=== PATIENT | female | born 1975 | race Hispanic/Latino ===

== ENCOUNTER 2016-02-26 16:27 | Emergency (ER) | payer OTHER ==
[~2016-02-26] VITALS: Ht 167.6 cm; Wt 79.1 kg
[2016-02-26 16:39] VITALS: BP 103/64; PULSE 56; RESP 15; O2SAT 99
--- NOTE | 2016-02-26 18:16 | ED.REPORT ---
HPI-URI / Cough / Cold Date of Service Feb 26, 2016 ED Provider: Brody Dwyer DO A healthy 40 year old female presents to the ED for a productive cough with yellow sputum onset two months ago. She also reports sneezing, heartburn, and mild pelvic pain. She denies generalized myalgias, fever, vomiting, dyspnea, hemoptysis, and diarrhea. Her children have been ill recently. The patient has been unable to make it to [facility] or Urgent Care which is why she is here today. Nursing Notes Stated Complaint: COUGH Chief Complaint: Respiratory Complaints Nursing Notes Reviewed: Yes Allergies: Coded Allergies: No Known Allergies (Verified , 02/26/16) Uncoded Allergies: NKA (Allergy, Unknown, 07/09/03) NKDA (Allergy, Unknown, 07/09/03) General Time Seen by MD: 18:03 Chief Complaint Cough, productive... (Yellow) Arrived By: Walk-in Onset Occurred: More than a week ago... (2 months) Symptom Duration: Since onset Location: : Chest Severity: Current: No pain currently (no pain rather she has frequent cough with yellow sputum.) Severity: Maximum: No pain Associated with: Reports: Abdominal pain (Suprapubic), Denies: Fever, Myalgia Pertinent Negative: Relieved by nothing Context: Immunization Status General: Unknown Recent Healthcare: No recent doctor visit Past Medical History Past Medical History Reviewed, patient denies Past Surgical History Reports: Tonsillectomy Smoking History Former Smoker (Stopped 02/24/16) Social History Other Social History: Lives with children Occupation [employer] Ambulatory Status Independent Review of Systems Constitutional: Denies: Fever Respiratory: Reports: Prod cough, yellow, Denies: Dyspnea on exertion, Hemoptysis, Pleuritic pain GI: Denies: Abdominal pain, Diarrhea, Vomiting Allergy / Immune: Reports: Sneezing Complete sys rev & neg: except as marked. Cardiovascular: Denies: Chest pain, Dyspnea on exertion, Orthopnea Female: Denies: Pelvic pain, Vaginal bleeding - abnl, Vaginal discharge Musculoskeletal: Denies: Myalgia Physical Exam Initial Vital Signs Vital Signs (First) Date Time Temp Pulse Resp B/P Pulse Ox O2 Delivery O2 Flow Rate FiO2 02/26/16 16:39 36.6 56 15 103/64 99 Room Air Initial VS: Reviewed Head / Eyes: Atraumatic, Normocephalic Neck: Non-tender, Full range of motion Cardiovascular: Regular rate & rhythm, Heart sounds normal Skin: Warm, Dry, No cyanosis Neurologic: Alert, Oriented, Nonfocal Psychiatric: Mood/affect normal, Behavior normal, Normal thought content ENT: Airway patent, Mucous membranes moist, Pharynx NL Nose: Positive: Rhinorrhea (Mild) Impetigo under right external nare, no abscess Respiratory / Chest: Breath sounds = bilat, No respiratory distress Wheezing / Retractions: Positive: Wheezing expiratory (Faint, bilaterally) Abdomen: Soft Tenderness/Guarding/Rebound: Positive: Tender suprapubic (Mild) Interpretation & Diagnostics Lab Results Interpretation Test 02/26/16 18:30 Urine Color Yellow (YELLOW) Urine Appearance Clear (CLEAR,HAZY) Urine pH 7.5 (5.0-8.0) Urine Specific [place] 1.020 (1.003-1.035) Urine Protein Negativemg/dL (NEG,TRACE) Urine Glucose (UA) Negativemg/dL (NEGATIVE) Urine Ketones Negativemg/dL (NEGATIVE) Urine Occult Blood Negative (NEGATIVE) Urine Nitrite Negative (NEGATIVE) Urine Bilirubin Negative (NEGATIVE) Urine Urobilinogen Normalmg/dL (NORMAL) Urine Leukocyte Esterase Negative (NEGATIVE) Urine RBC 0-2/hpf (0-2) Urine WBC 0-5/hpf (0-5) Urine Epithelial Cells Occasional/hpf (NONE-MOD) Urine Crystals None seen (NONE SEEN) Urine Bacteria Few/hpf (NONE-FEW) Urine Hyaline Casts None/lpf (NONE) Urine Granular Casts None seen (NONE SEEN) Urine Waxy Casts None seen (NONE SEEN) Urine Red Blood Cell Casts None seen (NONE SEEN) Urine White Blood Cell Casts None seen (NONE SEEN) Urine Mucus None seen (None Seen) Urine Trichomonas None seen (NONE SEEN) Urine Yeast None (NONE SEEN) Urinalysis Comment None Urine Culture Reflexed Not indicated X-Ray Chest Interpretation Chest Xray Interpretation: IMPRESSION: 1. No acute cardiopulmonary disease. Dictated by: Rosendo Means M.D. on 02/26/2016 at 18:52 View: AP & lat Interpretation / Wet Read by: Interpret - Radiologist Re-Eval/Medical Decision Med Decision/Clinical Course Healthy 40-year-old female presents with classic bronchitis with bronchospasm. She has had cough of yellow sputum. She has R Alvarez's. She is treated with bronchodilators and steroids. She improved dramatically. Diagnostics were reassuring. She is not . UA was negative. She did have mild urinary frequency. I felt pulmonary emboli to be very unlikely. I considered this diagnosis. She meets pulmonary emboli rule out criteria. D-dimer testing not indicated. She is low risk well score. Re-Evaluation/Progress : Time of Eval: 19:36 Patient Status: Condition improved Re-Evaluation/Progress Note: Patient is moving air better and feels as though her breathing has improved. Discussed with patient x-ray results, diagnosis, and plan for discharge. Follow-up and return to the ER instructions given. Patient agrees with plan for care and all questions were addressed. Counseled Regarding: Diagnosis, Need for follow-up, When/why to return to ED Discharge & Departure Impression: Primary Impression: Acute bronchitis Bronchitis organism: unspecified organism Qualified Code: J20.9 - Acute bronchitis, unspecified Additional Impression: Reactive airway disease Asthma severity: mild intermittent Asthma complication type: with acute exacerbation Qualified Code: J45.21 - Mild intermittent asthma with (acute) exacerbation Disposition: Home Discharge Condition All VS Reviewed: Yes Condition: Stable Patient Instructions: Acute Bronchitis (ED) Additional Instructions: Take doxycycline twice daily for 5 days. Prednisone daily for 3 days. One is an antibiotic and the other is an anti-inflammatory. Both are for your lungs. Albuterol 2 puffs every 2-3 hours as needed for the cough and wheeze. Your chest x-ray was normal. Do not smoke cigarettes. You should feel better in 24- 48 hours. If you are not improved then come back to the emergency department or be seen by your doctor. Either way set up a follow-up visit for the next 5- 7 days with your primary care. Do not hesitate to return if any problems or any worsening symptoms. Apply mupirocin ointment twice daily to the sore under your right nostril. I suspect that this is a staph or a strep infection and this ointment should help. Referrals: [facility] (PCP) Scribe Attestation Portions of this note were transcribed by Kita Villarreal. I, Dr. Dwyer, personally performed the history, physical exam, and medical decision-making; I reviewed and confirmed the accuracy of the information in the transcribed note. Signed by: Korey Palafox, 02/26/2016, 20:54 copies to: [facility] Todd P DO Feb 26, 2016 18:16 KITA VILLARREAL Feb 26, 2016 18:36
[2016-02-26] MEDS ORDERED: Albuterol-Ipratropium 3 mL Inhalation Solution NEB ONE (18:30)
[2016-02-26] MEDS ORDERED: predniSONE 20 mg Tablet PO ONE (18:30)
--- NOTE | 2016-02-26 18:53 | DRSVH ---
PROCEDURE: X-RAY CHEST, TWO VIEWS ([id number]) INDICATIONS: cough TECHNIQUE: 2 views of the chest were acquired. COMPARISON: [facility], , CHEST 2VW, 11/13/2013, 17:08. FINDINGS: Surgical changes and devices: None. Lungs and pleura: No pleural effusions or pneumothorax. Lungs are clear. Mediastinum: Mediastinal contours are normal. Heart size is normal. Bones and chest wall: No suspicious bony abnormalities. Soft tissues appear unremarkable. IMPRESSION: 1. No acute cardiopulmonary disease. Dictated by: Rosendo Means M.D. on 02/26/2016 at 18:52 Approved by: Rosendo Means M.D. on 02/26/2016 at 18:52
[2016-02-26 18:59] VITALS: PULSE 66; RESP 18; O2SAT 100
[2016-02-26] MEDS ORDERED: Albuterol HFA 60 Puff 8 Gm Inhaler INHALATION PRN (19:35)
[2016-02-26 19:50] VITALS: BP 98/63; PULSE 73; RESP 20; O2SAT 100
[2016-02-26 20:01] LABS: APPEARANCE,URINE CLEAR (CLEAR,HAZY); COLOR,URINE YELLOW (YELLOW); OCCULT BLOOD,URINE NEGATIVE (NEGATIVE); PH,URINE 7.5 (5.0-8.0); UROBILINOGEN,URINE NORMAL (NORMAL)
[2016-02-26] MEDS ORDERED: _Albuterol-HFA 60 Puff Inhaler INHALATION PRN (21:15)
== END 2016-02-26 20:50 | disposition home or self-care (01) ==
LOC: SED 16:27
DX: J20.9 Acute bronchitis, unspecified (principal); J45.21 Mild intermittent asthma with (acute) exacerbation; R12 Heartburn; R10.2 Pelvic and perineal pain; Z87.891 Personal history of nicotine dependence
CPT/HCPCS: 71020; 81000; 81025; 87804; 94664; 99284; J7620